=== PATIENT | male | born 1945 | race Caucasian/White ===

== ENCOUNTER 2021-11-05 01:28 | Day surgery (SDC) | payer MEDICARE, OTHER, SELFPAY ==
[2021-10-17 14:16] VITALS: BMI 30.1
[2021-11-05 07:50] VITALS: BP 154/91; PULSE 93; RESP 18; TEMP 36.3; O2SAT 97; BMI 29.7
[2021-11-05] MEDS: LACTATED RINGERS 1,000 ML 150 ML IV CONT (08:01)
[2021-11-05] MEDS: AMPICILLIN 2 GM/NS 100 ML 2 GM/100 ML BAG IVPB (08:04)
--- NOTE | 2021-11-05 08:20 | WPDGICN ---
Assessment and Plan Assessment and plan (1) Encounter for screening colonoscopy: Code(s): Z12.11 - Encounter for screening for malignant neoplasm of colon Status: Acute Assessment and Plan: Patient presents today for screening colonoscopy. Appears to be at average risk of colon polyp. High-fiber diet advised because of prior known history of diverticular disease. GI Consult Note Consult date/time: 11/05/21 08:20 HPI: Deyiv Acuña is a 76 year old male Presents for screening colonoscopy. Patient's current weight appetite and bowel movements are normal. Denies any abdominal pain. He has had no bleeding. His family history is noncontributory. Patient does have a distant history of perforated diverticulitis requiring a partial colon resection. This was more than 20 years ago. Review of Systems Review of Systems: All systems reviewed & are unremarkable except as noted in HPI and below PMFSH Social History Social History Years smoked: 40 Drinks per week: 1 Meds Home Medications and Allergies Home Medications Medication Instructions Recorded Confirmed Type aspirin 81 mg PO DAILY 10/17/21 10/17/21 History calcium carbonate-vitamin D3 1 tablet PO BID 10/17/21 10/17/21 History [Oyster Shell Calcium-Vit D3] dexamethasone 0.1 % EACH EYE EVERY OTHER DAY 10/17/21 10/17/21 History enalapril maleate 10 mg PO DAILY 10/17/21 10/17/21 History hydrochlorothiazide 12.5 mg PO DAILY 10/17/21 10/17/21 History melatonin 10 mg PO HS PRN 10/17/21 10/17/21 History rhtkbtvsscoj-fox-vnwv-FA-vit K 1 tablet PO DAILY 10/17/21 10/17/21 History [Adults Multivitamin] naproxen sodium [Aleve] 220 mg PO BID 10/17/21 10/17/21 History omeprazole 20 mg PO DAILY 10/17/21 10/17/21 History rosuvastatin See Rx Instructions .ROUTE .COMPLEX 10/17/21 10/17/21 History Allergies Allergy/AdvReac Type Severity Reaction Status Date / Time No Known Allergies Allergy Verified 11/05/21 07:49 Vital Signs Vital Signs - 24 hr 11/05/21 07:50 Temperature 97.3 F L Pulse Rate 93 Respiratory Rate 18 Blood Pressure 154/91 H Pulse Oximetry 97 Exam Narrative: Physical exam reveals patient to be alert. Vital signs stable. HEENT exam is unremarkable. Patient is anicteric. Lungs are clear to auscultation and percussion. Heart is without murmur or extra sounds. Abdominal exam bowel sounds are present soft nontender with no organomegaly. Digital external rectal exam is normal.
--- NOTE | 2021-11-05 08:37 | WPDANESEPPF ---
Anes - Initial Pre Proc Eval Procedure: Operation Date: 11/05/21 09:00 Proposed Procedures p Screening Colonoscopy - Zaire Hope MD Date/Time: 11/05/21 08:37 Surgeon: Zaire Hope MD Pre Op Diagnosis: neoplasm screening Patient Data Age: 76 Gender: M Height: 1.8 m Weight: 96.6 kg Last Vital Signs Temp 97.3 F L 11/05/21 07:50 Pulse 93 11/05/21 07:50 Resp 18 11/05/21 07:50 BP 154/91 H 11/05/21 07:50 Pulse Ox 97 11/05/21 07:50 Allergies Allergy/AdvReac Type Severity Reaction Status Date / Time No Known Allergies Allergy Verified 11/05/21 07:49 Home Medications Medication Instructions Recorded Confirmed Type aspirin 81 mg PO DAILY 10/17/21 10/17/21 History calcium carbonate-vitamin D3 1 tablet PO BID 10/17/21 10/17/21 History [Oyster Shell Calcium-Vit D3] dexamethasone 0.1 % EACH EYE EVERY OTHER DAY 10/17/21 10/17/21 History enalapril maleate 10 mg PO DAILY 10/17/21 10/17/21 History hydrochlorothiazide 12.5 mg PO DAILY 10/17/21 10/17/21 History melatonin 10 mg PO HS PRN 10/17/21 10/17/21 History ihchhuxoahlh-zht-fdpu-FA-vit K 1 tablet PO DAILY 10/17/21 10/17/21 History [Adults Multivitamin] naproxen sodium [Aleve] 220 mg PO BID 10/17/21 10/17/21 History omeprazole 20 mg PO DAILY 10/17/21 10/17/21 History rosuvastatin See Rx Instructions .ROUTE .COMPLEX 10/17/21 10/17/21 History Patient hx anesthesia problems: none Family hx anesthesia problems: none Results Review: All pre-operative results and documents have been reviewed as part of the pre-operative evaluation. PMFSH Social History Social History Years smoked: 40 Drinks per week: 1 Anes - Eval Final PreProcedure Day of Procedure 11/05/21 08:37 Patient weight: overweight Heart: regular rate and rhythm Lungs: clear to auscultation Airway: Mallampati scale class II Neurological: alert and oriented Last oral intake: >/= 8 hours ASA classification: III Emergent: no Anesthetic plan: proceed Anesthesia type and monitoring: general GIVS and standard monitoring Results Review: All pre-operative results and documents have been reviewed as part of the pre-operative evaluation. Informed Consent: The patient's anesthetic plan and its attendant risks and benefits were discussed with the patient/family/POA. Questions were solicited and answers provided to the satisfaction of the patient/family/POA.
[2021-11-05 09:19] VITALS: BP 124/84; PULSE 78; O2SAT 98
[2021-11-05 09:29] VITALS: BP 124/84; PULSE 80; O2SAT 97
[2021-11-05 10:39] VITALS: BP 150/94; PULSE 66; O2SAT 96
== END 2021-11-05 09:58 | disposition home or self-care (01) ==
PROVIDERS: PCP Internal Medicine; Visit Provider Internal Medicine Gastroenterology
PROC: 0DJD8ZZ Inspection of Lower Intestinal Tract, Via Natural or Artificial Opening Endoscopic (ICD-10-PCS; CPT 45378; principal; 2021-11-05 09:00)
DX: Z12.11 Encounter for screening for malignant neoplasm of colon (principal); K64.8 Other hemorrhoids; Z98.0 Intestinal bypass and anastomosis status; Z79.82 Long term (current) use of aspirin
CPT/HCPCS: G0121; J0290; J2704; J7120